=== PATIENT | female | born 1950 | race Caucasian/White ===

== ENCOUNTER 2016-06-14 12:19 | Observation (INO) | payer BC ==
[~2016-06-14] VITALS: Ht 165.1 cm; Wt 79.9 kg
[2016-06-14] VITALS (7 sets, daily range): BP systolic 123–147; BP diastolic 70–84; PULSE 78–86; TEMP 36.5–36.6; O2SAT 94–98; Ht 165.1 cm; Wt 79.9 kg
[~2016-06-14 12:19] MED LIST: CALCTAB30 PO; COEN1CAP17 PO; CYAN500T13 PO; GLUCTAB7 PO; LUTE6TAB PO; OMEG10007 PO; PHYT100T PO; SELE200C3 PO; TURM1CAP4 PO; VITA400C3 PO; VTMD1000 PO
[2016-06-14] MEDS ORDERED: ASPIRIN 324 MG CHEW PO STA (12:41)
--- NOTE | 2016-06-14 12:44 | EMERGENCY ROOM VISIT NOTE ---
History Report prepared by Isabel: Tobias Manzo Under the Supervision of: Dr. Alisha Cordon M.D. First contact with patient: 12:26 Chief Complaint: SYNCOPE Stated Complaint: DIZZY, SWEATING, PASSED OUT, NAUSEA History of Present Illness The patient is a 66 year old female who presents to the Emergency Room with complaints of a syncopal episode that occurred prior to arrival today. The patient says she woke up and got out of bed feeling nauseous and sweaty. She also had bad leg cramping. She thought she was dehydrated, so the patient went to the sink to get water. The patient got a drink, and then passed out. She woke up on the floor thinking she was in bed. The patient says her symptoms lasted for around an hour. When she woke up, the patient was very nauseous and white. She stayed white, according to her , until the patient started moving around. The patient denies any chest pain or recent constipation. She got testing done here a year ago when she was dehydrated. The patient called [facility] and there was no availability there, so the patient went to [facility]. [facility] told the patient to come to the ED. She has hyperlipidemia. Source of History: patient, spouse/significant other Onset: Prior to arrival today Position: other (global - syncope ) Timing: other (episode) Associated Symptoms: + diaphoresis, + nausea, No chest pain Note: Associated symptoms: Leg cramping prior to syncopal episode. Denies recent constipation. Review of Systems See HPI for pertinent positives & negatives. A total of 10 systems reviewed and were otherwise negative. Past Medical & Surgical Medical Problems: (1) Anxiety (2) Asthma, allergic (3) Dyslipidemia (4) H/O pilonidal cyst (5) Syncope Family History Thyroid problem Social History Smoking Status: Never Smoker Marital Status: Housing Status: lives with family Occupation Status: employed Current/Historical Medications Scheduled Aspirin (Aspirin EC Low Dose), 81 MG PO DAILY Ppxdnnz-Qazljbsao-Cqys (Calcium/Magnesium/Zinc), 1 TAB PO DAILY Cholecalciferol (Vitamin D3), 1,000 INTER.UNIT PO DAILY Coenzyme Q10 (Ubidecarenone) (Co Q 10), 100 MG PO DAILY Cyanocobalamin (Vitamin B12), 1,000 MCG PO DAILY Fish Oil ([place]-3), 1 CAP PO DAILY Reylqlhdncz-Dtbgeksamsa-Lfj C- (Glucosamine Chondroitin), 1 TAB PO DAILY Lutein-Zeaxanthin (Lutein W/Zeaxanthin), 1 TAB PO DAILY Vitamin E (Vitamin E 400 Iu), 400 INTER.UNIT PO DAILY Scheduled PRN Hydroxyzine Hcl (Atarax), 25 MG PO QID PRN for Anxiety Allergies Coded Allergies: Macrolides (Unverified Allergy, Mild, 06/14/16) Erythromycin (Unverified Allergy, Unknown, UNKNOWN, 06/14/16) Physical Exam Vital Signs Date Time Temp Pulse Resp B/P Pulse Ox O2 Delivery O2 Flow Rate FiO2 06/14/16 14:46 81 17 144/63 98 Room Air 06/14/16 13:40 72 18 126/68 96 Room Air 06/14/16 13:09 72 06/14/16 12:55 98 Room Air 06/14/16 12:51 77 138/71 81 130/69 82 118/73 06/14/16 12:27 36.5 73 18 145/81 98 Room Air Physical Exam CONSTITUTIONAL: Alert, awake, comfortable, no acute distress. HEENT: No icterus, moist mucous membranes NECK: No meningismus, trachea is midline. CARDIOVASCULAR: Regular rate, normal perfusion RESPIRATORY: Unlabored breathing. Clear to auscultation. GASTROINTESTINAL: Non-tender GENITOURINARY: No flank tenderness MUSCULOSKELETAL: Full range of motion NEUROLOGIC: No acute gross focal deficits. PSYCHIATRIC: Normal affect SKIN: Normal for ethnicity. Medical Decision & Procedures ER Provider Diagnostic Interpretation: X-ray results as stated below per interpretation by me and the radiologist. CHEST ONE VIEW PORTABLE HISTORY: syncope COMPARISON: Chest 12/14/2014. FINDINGS: The lungs are clear. Cardiac silhouette is normal in size. No pleural effusions. No pneumothorax. IMPRESSION: No acute process. Electronically signed by: Esteban Uribe M.D. 06/14/2016 1:12 PM Dictated Date/Time: 06/14/2016 1:11 PM Laboratory Results 06/14/16 13:10 Red Blood Count 4.50, Mean Corpuscular Volume 89.3, Mean Corpuscular Hemoglobin 30.9, Mean Corpuscular Hemoglobin Concent 34.6, Mean Platelet Volume 8.9, Neutrophils (%) (Auto) 85.0, Lymphocytes (%) (Auto) 11.2, Monocytes (%) (Auto) 3.4, Eosinophils (%) (Auto) 0.0, Basophils (%) (Auto) 0.3, Neutrophils # (Auto) 6.65, Lymphocytes # (Auto) 0.88, Monocytes # (Auto) 0.27, Eosinophils # (Auto) 0.00, Basophils # (Auto) 0.02 06/14/16 13:10 Test 06/14/16 12:33 06/14/16 13:10 06/14/16 14:32 Urine Color YELLOW Urine Appearance CLEAR (CLEAR) Urine pH 7.0 (4.5-7.5) Urine Specific [place] 1.019 (1.000-1.030) Urine Protein NEG (NEG) Urine Glucose (UA) NEG (NEG) Urine Ketones NEG (NEG) Urine Occult Blood NEG (NEG) Urine Nitrite NEG (NEG) Urine Bilirubin NEG (NEG) Urine Urobilinogen NEG (NEG) Urine Leukocyte Esterase NEG (NEG) White Blood Count 7.83 K/uL (4.8-10.8) Red Blood Count 4.50 M/uL (4.2-5.4) Hemoglobin 13.9 g/dL (12.0-16.0) Hematocrit 40.2 % (37-47) Mean Corpuscular Volume 89.3 fL (80-100) Mean Corpuscular Hemoglobin 30.9 pg (25-34) Mean Corpuscular Hemoglobin Concent 34.6 g/dl (32-36) Platelet Count 216 K/uL (130-400) Mean Platelet Volume 8.9 fL (7.4-10.4) Neutrophils (%) (Auto) 85.0 % Lymphocytes (%) (Auto) 11.2 % Monocytes (%) (Auto) 3.4 % Eosinophils (%) (Auto) 0.0 % Basophils (%) (Auto) 0.3 % Neutrophils # (Auto) 6.65 K/uL (1.4-6.5) Lymphocytes # (Auto) 0.88 K/uL (1.2-3.4) Monocytes # (Auto) 0.27 K/uL (0.11-0.59) Eosinophils # (Auto) 0.00 K/uL (0-0.5) Basophils # (Auto) 0.02 K/uL (0-0.2) RDW Standard Deviation 40.3 fL (36.4-46.3) RDW Coefficient of Variation 12.5 % (11.5-14.5) Immature Granulocyte % (Auto) 0.1 % Immature Granulocyte # (Auto) 0.01 K/uL (0.00-0.02) Prothrombin Time 11.2 SECONDS (9.0-12.0) Prothromb Time International Ratio 1.0 (0.9-1.1) Activated Partial Thromboplast Time 26.6 SECONDS (21.0-31.0) Partial Thromboplastin Ratio 1.0 Anion Gap 8.0 mmol/L (3-11) Est Creatinine Clear Calc Drug Dose 75.4 ml/min Estimated GFR () 91.7 Estimated GFR (Non- 79.1 BUN/Creatinine Ratio 12.9 (10-20) Calcium Level 8.7 mg/dl (8.5-10.1) Total Bilirubin 0.4 mg/dl (0.2-1) Aspartate Amino Transf (AST/SGOT) 19 U/L (15-37) Alanine Aminotransferase (ALT/SGPT) 26 U/L (12-78) Alkaline Phosphatase 54 U/L (45-117) Troponin I < 0.015 ng/ml (0-0.045) Total Protein 7.0 gm/dl (6.4-8.2) Albumin 3.7 gm/dl (3.4-5.0) Globulin 3.3 gm/dl (2.5-4.0) Albumin/Globulin Ratio 1.1 (0.9-2) Labs reviewed by ED physician. Medications Administered Medications (Trade) Dose Ordered Sig/Fernando Route Start Time Stop Time Status Last Admin Dose Admin Aspirin 324 mg 324 mg NOW STAT PO 06/14/16 12:41 06/14/16 12:43 DC 06/14/16 12:54 324 MG Sodium Chloride (Nss 1000ml) 1,000 ml @ 80 mls/hr [id number] IV 06/14/16 14:12 06/15/16 02:41 06/14/16 14:12 80 MLS/HR ECG Indication: syncope Rate (beats per minute): 73 Rhythm: normal sinus Findings: other (normal axis, normal ST findings, normal intervals) ED Course 1233: Past medical records reviewed. The patient was evaluated in room B12B. A complete history and physical examination was performed. The patient verbally expressed understanding and agreement of the treatment plan. The patient will be evaluated for further treatment. 1241: Ordered Aspirin Chew 324 mg PO. 1327: I discussed the patient with Mandi Sanchez - she will evaluate the patient for further treatment. Medical Decision Differential diagnoses include: cardiac dysrhythmia, cardiac disease, anemia. 66-year-old presented to the emergency room with her for evaluation of syncope. She reports she's been in her otherwise normal state of health but inexplicably became mildly nauseous and diaphoretic and reportedly looked pale per her . During the time she had a nontraumatic episode of syncope with rapid return to consciousness but continued to feel ill for nearly 60 minutes. His been no recent cardiac evaluations expressly feels well without complaints and has normal vital signs. EKG does not demonstrate any concerning ST nor interval changes at this time. She remained without cardiac dysrhythmia on monitor during emergency Department course. Admission arranged hospitalist. Consults Time Called: 1323 Consulting Physician: Mandi Sanchez Returned Call: 1327 I discussed the patient with Mandi Sanchez - she will evaluate the patient for further treatment. Impression Primary Impression: Syncope Scribe Attestation The scribe's documentation has been prepared under my direction and personally reviewed by me in its entirety. I confirm that the note above accurately reflects all work, treatment, procedures, and medical decision making performed by me. Departure Information Dispostion Being Evaluated By Hospitalist Referrals Bryn Villegas M.D. (MEDICAL) (PCP) Patient Instructions A Signature Page, My [facility]
--- NOTE | 2016-06-14 13:13 | DIAGNOSTIC IMAGING REPORT ---
CHEST ONE VIEW PORTABLE HISTORY: syncope COMPARISON: Chest 12/14/2014. FINDINGS: The lungs are clear. Cardiac silhouette is normal in size. No pleural effusions. No pneumothorax. IMPRESSION: No acute process. Electronically signed by: Esteban Uribe M.D. 06/14/2016 1:12 PM Dictated Date/Time: 06/14/2016 1:11 PM
[2016-06-14 13:29] LABS: BASO % 0.3 %; BASO ABS # 0.02 K/uL (0-0.2); COMPLETE YES; HEMATOCRIT 40.2 % (37-47); IG% 0.1 %; LYMPH % 11.2 %; LYMPH ABS # 0.88 K/uL (1.2-3.4); MEAN CELL VOLUME 89.3 fL (80-100); MEAN CORPUSCULAR HEMOGLOBIN 30.9 pg (25-34); MEAN CORPUSCULAR HGB CONC 34.6 g/dl (32-36); MEAN PLATELET VOLUME 8.9 fL (7.4-10.4); MONO % 3.4 %; PLATELET COUNT 216 K/uL (130-400); WHITE BLOOD COUNT 7.83 K/uL (4.8-10.8)
[2016-06-14 13:39] LABS: PROTHROMBIN TIME (PATIENT) 11.2 SECONDS (9.0-12.0)
[2016-06-14 13:47] LABS: URINE APPEARANCE CLEAR (CLEAR); URINE BILIRUBIN NEG (NEG); URINE COLOR YELLOW; URINE NITRITE NEG (NEG); URINE SPECIFIC GRAVITY 1.019 (1.000-1.030); UROBILINOGEN NEG (NEG); ZZUR CULT IF INDIC CLEAN CATCH NO
[2016-06-14 13:57] LABS: ALT/SGPT 26 U/L (12-78); BLOOD UREA NITROGEN 10 mg/dl (7-18); BUN/CREATININE RATIO 12.9 (10-20); CALCIUM 8.7 mg/dl (8.5-10.1); CARBON DIOXIDE 27 mmol/L (21-32); CHLORIDE 106 mmol/L (98-107); CREATININE 0.79 mg/dl (0.60-1.20); GLUCOSE 128 mg/dl (70-99); POTASSIUM 4.3 mmol/L (3.5-5.1); SODIUM 141 mmol/L (136-145)
[2016-06-14 13:57] LABS: MANUAL MICROSCOPIC REQUIRED? NO; REVIEW REQ? NO
[2016-06-14 14:02] LABS: ALB/GLOB RATIO 1.1 (0.9-2); ALKALINE PHOSPHATASE 54 U/L (45-117); AST/SGOT 19 U/L (15-37)
[2016-06-14] MEDS ORDERED: SODIUM CHLORIDE 0.9% 1000ML 1,000 ML IV SCH (14:12)
[2016-06-14] MEDS ORDERED: ONDANSETRON INJ 2 MG/ML 2 ML VIAL IV PRN (14:15)
[2016-06-14] MEDS ORDERED: ACETAMINOPHEN 325 MG TAB PO PRN (14:15)
[2016-06-14] MEDS ORDERED: NITROGLYCERIN 0.4 MG SL PER TAB CHARGE SL PRN (14:15)
[2016-06-14] MEDS ORDERED: ASPEC81 PO (14:26)
[2016-06-14] MEDS ORDERED: HYDR-3124 PO (14:26)
[2016-06-14] MEDS ORDERED: CYAN100020 PO (14:26)
[2016-06-14] MEDS ORDERED: hydrOXYzine HCL 25 MG TAB PO PRN (14:30)
--- NOTE | 2016-06-14 14:43 | DIAGNOSTIC IMAGING REPORT ---
CT SCAN OF THE BRAIN WITHOUT IV CONTRAST CLINICAL HISTORY: Syncope. COMPARISON STUDY: CT of the brain dated 12/14/2014. TECHNIQUE: Unenhanced axial CT scan of the brain is performed from the vertex to the skull base. Automated dose control exposure was utilized. CT DOSE: 537.48 mGy.cm FINDINGS: Brain parenchyma: The brain parenchyma is normal in appearance. There is no hemorrhage, mass effect, or evidence of acute territorial ischemia by CT criteria. Gonzáles-white matter is preserved. No extra-axial fluid collection is seen. Ventricles, sulci, cisterns: Normal in configuration. Intracranial vasculature: There is atherosclerotic calcification of the cavernous carotid arteries. Calvarium: The skeletal structures are osteopenic. There is no depressed calvarial fracture. Sinuses and mastoids: The visualized paranasal sinuses are clear. The mastoid air cells are well pneumatized. Orbits: The bony orbits are grossly intact. IMPRESSION: No acute intracranial abnormality. Electronically signed by: Bill Grady M.D. 06/14/2016 2:41 PM Dictated Date/Time: 06/14/2016 2:39 PM
--- NOTE | 2016-06-14 14:53 | History and Physical ---
History & Physical Date & Time of Service: Jun 14, 2016 at 14:28 Chief Complaint: Dizzy, Sweating, Passed Out, Nausea Primary Care Physician: Bryn Villegas M.D. (MEDICAL) History of Present Illness Source: patient This is a 66 y/o female with PMHx of Dyslipidemia and other problems as outlined below who presents to the ED c/o syncopal episode that occurred prior to arrival. Pt reports that this morning she was awoken due to a [place] horse and jumped out of bed. Upon standing she became very lightheaded and diaphoretic. She drank a glass of water thinking she was dehydrated and next thing she knew she was waking up on the floor. Patient was home alone when she passed out and does not know how long she was unconscious for. She does not know if she hit her head. After getting herself up off the floor she returned to bed although the lightheadedness, diaphoresis and nausea persisted for about an hour. Pt has a history of syncope while at the dentist "years ago" but reports that it was due to nerves. Pt has been exposed to multiple family members with upper respiratory sxs recently. Pt denies fever/chills, visual changes, chest pain, palpitations, SOB, wheezing, abd pain, vomiting, melena, hematochezia, diarrhea, constipation, dysuria, hematuria, loss of bowel or bladder control, LE edema, calf pain, unilateral weakness, slurred speech, facial droop, difficulty ambulating, difficulty swallowing or confusion. In the ED, vitals are stable. Labs are unremarkable. CXR is negative. Troponin negative and EKG no evidence of ischemic changes. Pt is currently feeling back to her baseline. She was able to ambulate in the ED with no issues. She will be admitted for further evaluation and treatment. Past Medical/Surgical History Medical Problems: (1) Anxiety Status: Chronic (2) Asthma, allergic Status: Chronic (3) Dyslipidemia Status: Chronic (4) H/O pilonidal cyst Permanent Comment: surgically removed 1971 Status: Resolved Family History Thyroid problem Social History Smoking Status: Never Smoker Alcohol Use: 2 beers/night Drug Use: none Marital Status: Housing status: lives with significant other Occupational Status: employed Multi-Drug Resistant Organisms History of MDRO: No Allergies Coded Allergies: Macrolides (Unverified Allergy, Mild, 06/14/16) Erythromycin (Unverified Allergy, Unknown, UNKNOWN, 06/14/16) Home Medications Scheduled Aspirin (Aspirin EC Low Dose), 81 MG PO DAILY Oguhgbl-Xgfdlpuee-Sbvc (Calcium/Magnesium/Zinc), 1 TAB PO DAILY Cholecalciferol (Vitamin D3), 1,000 INTER.UNIT PO DAILY Coenzyme Q10 (Ubidecarenone) (Co Q 10), 100 MG PO DAILY Cyanocobalamin (Vitamin B12), 1,000 MCG PO DAILY Fish Oil ([place]-3), 1 CAP PO DAILY Hxhwytqnzwz-Ysrkhridtgi-Nrh C- (Glucosamine Chondroitin), 1 TAB PO DAILY Lutein-Zeaxanthin (Lutein W/Zeaxanthin), 1 TAB PO DAILY Vitamin E (Vitamin E 400 Iu), 400 INTER.UNIT PO DAILY Scheduled PRN Hydroxyzine Hcl (Atarax), 25 MG PO QID PRN for Anxiety Review of Systems Constitutional: + sweats, No chills, No fatigue, No fever, No weakness Eyes: No diplopia, No worsening of vision ENT: No nasal symptoms, No trouble swallowing Respiratory: No cough, No shortness of breath, No sputum, No wheezing Cardiovascular: No chest pain, No claudication, No edema, No palpitations Abdomen: + nausea, No GI bleeding, No constipation, No diarrhea, No pain, No vomiting Musculoskeletal: No calf pain, No swelling Genitourinary - Female: No dysuria, No hematuria Neurologic: + problem reported (syncope, lightheaded ), No weakness Psychiatric: No depression symptoms Endocrine: No fatigue Hematologic / Lymphatic: No abnormal bleeding/bruising Integumentary: No new/changing skin lesions Physical Exam Vital Signs Date Time Temp Pulse Resp B/P Pulse Ox O2 Delivery O2 Flow Rate FiO2 06/14/16 13:40 72 18 126/68 96 Room Air 06/14/16 13:09 72 06/14/16 12:55 98 Room Air 06/14/16 12:51 77 138/71 81 130/69 82 118/73 06/14/16 12:27 36.5 73 18 145/81 98 Room Air General Appearance: WD/WN, no apparent distress, + pertinent finding (Pt is sitting up in bed with at bedside ) Head: normocephalic, atraumatic Eyes: normal inspection ENT: hearing grossly normal Neck: supple Respiratory/Chest: chest non-tender, lungs clear, normal breath sounds, no respiratory distress Cardiovascular: regular rate, rhythm, no edema, no murmur Abdomen/GI: normal bowel sounds, non tender, soft Back: normal inspection Extremities/Musculoskelatal: normal inspection, no calf tenderness, no pedal edema Neurologic/Psych: alert, normal mood/affect, oriented x 3 Skin: normal color, warm/dry Diagnostics Laboratory Results Results Past 24 Hours Test 06/14/16 12:33 06/14/16 13:10 Range/Units Urine Color YELLOW Urine Appearance CLEAR CLEAR Urine pH 7.0 4.5-7.5 Urine Specific [place] 1.019 1.000-1.030 Urine Protein NEG NEG Urine Glucose (UA) NEG NEG Urine Ketones NEG NEG Urine Occult Blood NEG NEG Urine Nitrite NEG NEG Urine Bilirubin NEG NEG Urine Urobilinogen NEG NEG Urine Leukocyte Esterase NEG NEG White Blood Count 7.83 4.8-10.8 K/uL Red Blood Count 4.50 4.2-5.4 M/uL Hemoglobin 13.9 12.0-16.0 g/dL Hematocrit 40.2 37-47 % Mean Corpuscular Volume 89.3 80-100 fL Mean Corpuscular Hemoglobin 30.9 25-34 pg Mean Corpuscular Hemoglobin Concent 34.6 32-36 g/dl Platelet Count 216 130-400 K/uL Mean Platelet Volume 8.9 7.4-10.4 fL Neutrophils (%) (Auto) 85.0 % Lymphocytes (%) (Auto) 11.2 % Monocytes (%) (Auto) 3.4 % Eosinophils (%) (Auto) 0.0 % Basophils (%) (Auto) 0.3 % Neutrophils # (Auto) 6.65 1.4-6.5 K/uL Lymphocytes # (Auto) 0.88 1.2-3.4 K/uL Monocytes # (Auto) 0.27 0.11-0.59 K/uL Eosinophils # (Auto) 0.00 0-0.5 K/uL Basophils # (Auto) 0.02 0-0.2 K/uL RDW Standard Deviation 40.3 36.4-46.3 fL RDW Coefficient of Variation 12.5 11.5-14.5 % Immature Granulocyte % (Auto) 0.1 % Immature Granulocyte # (Auto) 0.01 0.00-0.02 K/uL Prothrombin Time 11.2 9.0-12.0 SECONDS Prothromb Time International Ratio 1.0 0.9-1.1 Activated Partial Thromboplast Time 26.6 21.0-31.0 SECONDS Partial Thromboplastin Ratio 1.0 Sodium Level 141 136-145 mmol/L Potassium Level 4.3 3.5-5.1 mmol/L Chloride Level 106 98-107 mmol/L Carbon Dioxide Level 27 21-32 mmol/L Anion Gap 8.0 3-11 mmol/L Blood Urea Nitrogen 10 7-18 mg/dl Creatinine 0.79 0.60-1.20 mg/dl Est Creatinine Clear Calc Drug Dose 75.4 ml/min Estimated GFR () 91.7 Estimated GFR (Non- 79.1 BUN/Creatinine Ratio 12.9 10-20 Random Glucose 128 70-99 mg/dl Calcium Level 8.7 8.5-10.1 mg/dl Total Bilirubin 0.4 0.2-1 mg/dl Aspartate Amino Transf (AST/SGOT) 19 15-37 U/L Alanine Aminotransferase (ALT/SGPT) 26 12-78 U/L Alkaline Phosphatase 54 45-117 U/L Troponin I < 0.015 0-0.045 ng/ml Total Protein 7.0 6.4-8.2 gm/dl Albumin 3.7 3.4-5.0 gm/dl Globulin 3.3 2.5-4.0 gm/dl Albumin/Globulin Ratio 1.1 0.9-2 Diagnostic Radiology CXR IMPRESSION: No acute process. EKG EKG: NSR at 73 bpm with no acute ischemic changes; no significant change when compared to EKG from 12/16/14 Impression Assessment and Plan SYNCOPE UNCLEAR ETIOLOGY pt presents with syncopal episode prior to arrival assoc with lightheadedness, diaphoresis and nausea -admit observation status to telemetry -vitals stable on arrival; 20 point drop in SBP from supine to standing -electrolytes unremarkable; glucose WNL -Initial troponin negative; monitor with serial Gregory -EKG NSR with no ischemic change -obtain CT head to r/o abnormal intracranial process -check carotid US to r/o stenosis -obtain echo -start IVF -monitor on telemetry for any arrhythmias -pt appears stable ANXIETY -stable -hydroxyzine PRN (pt rarely uses) DYSLIPIDEMIA -cont statin DVT PROPHYLAXIS -subq Lovenox CODE STATUS -FULL CODE status per discussion with patient upon admission DISPO -Pt seen in collaboration with Dr. Zapien. Please see his addendum for further details. Thanks! Agree with above H and P. Briefly 66F presents with an episode of syncope. Patient got up from sleep around 8am and she suddenly got up from the bed and felt dizzy and not felt well. Thought she might have dehydrated and wanted to drink water but she fell on the floor but she thought she was lying on the bed when she got up. Says she was there for few minutes. No biting of tounge or incontinence or shaking during the episode. No chest pain or sob. Was not confused when she got up. Did not feel good for about an hour and then became normal. Currently resting comfortably and hemodynamically stable. 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 vaso vagal? ct head and carotid Doppler negative will f/u echo and monitor in tele anxiety home meds prn VTE Prophylaxis VTE Risk Assessment Done? Y/N: Yes Risk Level: Moderate
--- NOTE | 2016-06-14 15:52 | DIAGNOSTIC IMAGING REPORT ---
ULTRASOUND OF THE CAROTID ARTERIES CLINICAL HISTORY: Syncope. COMPARISON STUDY: No priors. TECHNIQUE: Real-time, grayscale, and color Doppler sonography of the carotid arteries is performed. Images are reviewed in the transverse and longitudinal planes. FINDINGS: Blood pressure in the right arm measures 148/74 and blood pressure in the left arm measures 145/64. The carotid arteries are patent bilaterally and demonstrate antegrade flow. There is no significant atherosclerotic plaque identified. Normal doppler arterial waveforms are seen throughout. Velocity measurements are listed below. Common carotid peak systolic velocity (cm/sec): RIGHT: 129 LEFT: 129 ICA proximal peak systolic velocity (cm/sec): RIGHT: 86 LEFT: 57 ICA mid peak systolic velocity (cm/sec): RIGHT: 100 LEFT: 87 ICA distal peak systolic velocity (cm/sec): RIGHT: 95 LEFT: 73 ICA/CC peak systolic ratio: RIGHT: 0.8 LEFT: 0.7 Antegrade flow was shown in the vertebral arteries. The external carotid arteries are patent. IMPRESSION: 1. There is no sonographic evidence of hemodynamically significant stenosis in the right or left carotid arterial system. 2. Antegrade flow is shown in the vertebral arteries. Electronically signed by: Bill Grady M.D. 06/14/2016 3:50 PM Dictated Date/Time: 06/14/2016 3:47 PM
[2016-06-14 16:16] LABS: INFLUENZA A PCR Neg for Influ A (NEG); INFLUENZA B PCR Neg for Influ B (NEG)
[2016-06-14] MEDS ORDERED: IV FLUIDS COMPLETED PRN (16:45)
[2016-06-14] MEDS ORDERED: ENOXAPARIN 40 MG/0.4 ML SYR SC SCH (21:00)
[2016-06-15] VITALS (9 sets, daily range): BP systolic 126–142; BP diastolic 71–90; PULSE 78–90; TEMP 36.5–36.7; O2SAT 95–98
[2016-06-15 07:27] LABS: HEMATOCRIT 40.3 % (37-47); MEAN CORPUSCULAR HEMOGLOBIN 30.4 pg (25-34); MEAN CORPUSCULAR HGB CONC 33.7 g/dl (32-36); MEAN PLATELET VOLUME 9.2 fL (7.4-10.4); PLATELET COUNT 227 K/uL (130-400); RED BLOOD COUNT 4.48 M/uL (4.2-5.4); WHITE BLOOD COUNT 6.63 K/uL (4.8-10.8)
[2016-06-15 07:59] LABS: BUN/CREATININE RATIO 14.5 (10-20); CALCIUM 8.3 mg/dl (8.5-10.1); CREATININE 0.68 mg/dl (0.60-1.20); POTASSIUM 3.7 mmol/L (3.5-5.1)
[2016-06-15] MEDS ORDERED: TOCOPHERYL, DL-ALPHA 400 INTER.UNIT CAP PO SCH (09:00)
[2016-06-15] MEDS ORDERED: NON-FORMULARY MEDICATION (Coenzyme Q10 (Ubidecarenone) (Co Q 10) 100 MG) PO SCH (09:00)
[2016-06-15] MEDS ORDERED: OMEGA-3 (PURIFIED FISH OIL) 1 GM CAP PO SCH (09:00)
[2016-06-15] MEDS ORDERED: NON-FORMULARY MEDICATION (Glucosamine-Chondroitin-Vit C- (Glucosamine Chondroitin) 1 TAB) PO SCH (09:00)
[2016-06-15] MEDS ORDERED: ASPIRIN 81 MG ECTAB PO SCH (09:00)
[2016-06-15] MEDS ORDERED: LUTEIN ZEAXANTHIN PO SCH (09:00)
[2016-06-15] MEDS ORDERED: CYANOCOBALAMIN 500 MCG TAB (VIT B-12) PO SCH (09:00)
[2016-06-15] MEDS ORDERED: CHOLECALCIFEROL 1000 INTER.UNIT TAB PO SCH (09:00)
--- NOTE | 2016-06-15 16:12 | ECHOCARDIOGRAM REPORT ---
*NOTICE TO RECEIVING [facility] This information is strictly Confidential and protected under [place] law. [place] law prohibits you from making any further disclosure of this information unless further disclosure is expressly permitted by the written consent of the person to whom it pertains or is authorized by law. A general authorization for the release of medical or other information is not sufficient for this purpose. Hospital accepts no responsibility if the information is made available to any other person, INCLUDING THE PATIENT. Interpretation Summary * Name: GEMA HAMMER Study Date: 06/15/2016 08:30 AM BP: 142/74 mmHg * Patient Location: C.2T\S\S240\S\1 HR: 78 * : 1950 (M/d/yyyy) Gender: Female Height: 65 in * Age: 66 yrs Ethnicity: CA Weight: 177 lb * Ordering Physician: Mandi Villatoro * Performed By: Ana Walsh * * Reason For Study: SYNCOPE * BSA: 1.9 m2 * -- Conclusions -- * The left ventricular wall motion is normal. * Ejection Fraction = 55-60%. * Grade I diastolic dysfunction, (abnormal relaxation pattern). * There is a trivial right lateral loculated pericardial effusion. * There are no echocardiographic indications of cardiac tamponade. Procedure Details * A complete two-dimensional transthoracic echocardiogram was performed (2D, M-mode, Doppler and color flow Doppler). Left Ventricle * The left ventricle is normal in size. * There is normal left ventricular wall thickness. * Left ventricular systolic function is normal. * Ejection Fraction = 55-60%. * The left ventricular wall motion is normal. Right Ventricle * The right ventricle is normal size. * The right ventricular systolic function is normal as assessed by tricuspid annular plane systolic excursion (TAPSE) (normal >1.5 cm). Atria * The left atrial size is normal. * Right atrial size is normal. * There is no evidence of atrial septal defect, but resolution does not allow assessment for a patent foramen ovale. Mitral Valve * The mitral valve is normal. * There is no mitral valve stenosis. * Significant mitral regurgitation is absent. Tricuspid Valve * The tricuspid valve is normal. * There is no tricuspid stenosis. * Significant tricuspid regurgitation is absent. Aortic Valve * The aortic valve is trileaflet. * Aortic stenosis is absent. * There is no significant aortic regurgitation. Pulmonic Valve * The pulmonary valve is not well seen, but the Doppler examination is normal without significant regurgitation or stenosis. Great Vessels * The aortic root and proximal ascending aorta are normal sized. Pericardium/Pleural * There is a trivial right lateral loculated pericardial effusion. * There are no echocardiographic indications of cardiac tamponade. Great Vessels * Normal inferior vena cava diameter and respiratory variation suggests normal central venous pressure. * There is no evidence of pulmonary hypertension. The PA systolic pressure is less than 36 mmHg. * Normal inferior vena cava size and collapsability with sniff indicates a normal right atrial pressure of 3 mmHg Left Ventricular Diastolic Function * Grade I diastolic dysfunction, (abnormal relaxation pattern). MMode 2D Measurements and Calculations IVSd 0.80 cm IVSs 10 cm LVIDd 4.6 cm LVIDs 3.2 cm LVPWd 0.47 cm LVPWs 1.4 cm IVS/LVPW 1.7 FS 31.6 % EDV(Teich) 99.2 ml ESV(Teich) 40.1 ml EF(Teich) 59.5 % EDV(cubed) 99.7 ml ESV(cubed) 32.0 ml EF(cubed) 67.9 % % IVS thick 24.3 % % LVPW thick 198.0 % LV mass(C)d 89.2 grams LV mass(C)dI 47.5 grams/m\S\2 LV mass(C)s 117.7 grams LV mass(C)sI 62.7 grams/m\S\2 SV(Teich) 59.0 ml SI(Teich) 31.4 ml/m\S\2 SV(cubed) 67.7 ml SI(cubed) 36.1 ml/m\S\2 ACS 1.5 cm LA dimension 3.6 cm asc Aorta Diam 3.1 cm LVOT diam 1.4 cm LVOT area 1.6 cm\S\2 LVAd ap4 32.0 cm\S\2 LVLd ap4 9.1 cm EDV(MOD-sp4) 93.6 ml EDV(sp4-el) 95.4 ml LVAs ap4 16.1 cm\S\2 LVLs ap4 6.5 cm ESV(MOD-sp4) 32.0 ml ESV(sp4-el) 33.7 ml EF(MOD-sp4) 65.8 % EF(sp4-el) 64.6 % LVAd ap2 31.8 cm\S\2 LVLd ap2 8.2 cm EDV(MOD-sp2) 105.1 ml EDV(sp2-el) 104.6 ml LVAs ap2 16.5 cm\S\2 LVLs ap2 6.3 cm ESV(MOD-sp2) 36.5 ml ESV(sp2-el) 36.9 ml EF(MOD-sp2) 65.3 % EF(sp2-el) 64.7 % LVLd %diff -11.18 % EDV(MOD-bp) 104.1 ml LVLs %diff -3.73 % ESV(MOD-bp) 34.8 ml EF(MOD-bp) 66.6 % SV(MOD-sp4) 61.6 ml SI(MOD-sp4) 32.8 ml/m\S\2 SV(MOD-sp2) 68.6 ml SI(MOD-sp2) 36.5 ml/m\S\2 SV(MOD-bp) 69.3 ml SI(MOD-bp) 36.9 ml/m\S\2 SV(sp4-el) 61.6 ml SI(sp4-el) 32.8 ml/m\S\2 SV(sp2-el) 67.7 ml SI(sp2-el) 36.1 ml/m\S\2 Doppler Measurements and Calculations MV E max sanjay 88.7 cm/sec MV A max sanjay 103.4 cm/sec MV E/A 0.86 MV dec time 0.21 sec Ao V2 max 131.0 cm/sec Ao max PG 6.9 mmHg Ao max PG (full) 1.4 mmHg AMADOR(V,A) 1.4 cm\S\2 AMADOR(V,D) 1.4 cm\S\2 LV V1 max PG 5.5 mmHg LV V1 mean PG 2.3 mmHg LV V1 max 117.4 cm/sec LV V1 mean 65.4 cm/sec LV V1 VTI 28.8 cm SV(LVOT) 45.8 ml SI(LVOT) 24.4 ml/m\S\2 PA V2 max 72.8 cm/sec PA max PG 2.1 mmHg TR max sanjay 231.1 cm/sec
--- NOTE | 2016-06-15 16:36 | Discharge Instructions ---
Discharge Instructions Admission Reason for Admission: Syncope Discharge Discharge Diagnosis / Problem: syncope Discharge Goals Goal(s): Decrease discomfort, Improve function Activity Recommendations Activity Limitations: resume your previous activity . Instructions / Follow-Up Instructions / Follow-Up FOLLOWUP WITH FAMILY DOCTOR ON Jun AT 10:10AM FOLLOWUP WITH FAMILY DOCTOR FOR TRACE RIGHT LATERAL LOCULATED PERICARDIAL EFFUSION. Current Hospital Diet Patient's current hospital diet: Regular Diet Discharge Diet Recommended Diet: Regular Diet Pending Studies Studies pending at discharge: no Medical Emergencies . Who to Call and When: Medical Emergencies: If at any time you feel your situation is an emergency, please call 911 immediately. . Non-Emergent Contact Non-Emergency issues call your: Primary Care Provider . . "Provider Documentation" section prepared by Shalom Zapien. VTE Core Measure Inpt VTE Proph given/why not?: Enoxaparin (Lovenox)SQ (REFUSED)
--- NOTE | 2016-06-15 19:33 | Progress Note ---
Internal Med Progress Note Date of Service: Jun 15, 2016. Provider Documentation: SUBJECTIVE: resting comfortably no chest pain or sob no nausea no dizziness want to go home OBJECTIVE: Vital Signs-as noted below Exam: General-alert and oriented x 3 ENT-normal hearing Neck-no neck masses Lungs-cta b/l no wheezing or rhonchi Heart-s1 and s2 heard regular rate and rhythm, no murmurs Abdomen-soft bowel sounds present non tender no distension Extremities-no edema no erythema Neuro-alert and awake moves extremities Lab data as noted below. ASSESSMENT & PLAN: SYNCOPE UNCLEAR ETIOLOGY pt presents with syncopal episode prior to arrival assoc with lightheadedness, diaphoresis and nausea Monitored in tele was slight orthostatics in ER butv today no orthostatic hypotension ct head unremarkable carotid Doppler unremarkable echo unremarkable except for trivial right lateral loculated pericardial effusion- f/u with pcp discharged home to follow up with pcp ANXIETY stable on hydroxyzine PRN (pt rarely uses) DYSLIPIDEMIA on statin discharged home Vital Signs: Date Time Temp Pulse Resp B/P Pulse Ox O2 Delivery O2 Flow Rate FiO2 06/15/16 17:14 36.7 90 18 97 Room Air 06/15/16 16:00 96 Room Air 06/15/16 15:20 36.7 90 18 129/90 97 Room Air 06/15/16 12:00 95 Room Air 06/15/16 11:47 36.5 80 18 126/71 98 Room Air 06/15/16 08:00 97 Room Air 06/15/16 07:30 36.6 80 20 129/77 97 Room Air 06/15/16 04:00 Room Air 06/15/16 03:06 36.6 78 20 142/74 95 Room Air 06/15/16 00:01 97 Room Air 06/14/16 23:25 36.6 86 18 135/84 97 Room Air 06/14/16 20:15 78 123/72 97 Room Air 78 136/82 82 130/78 06/14/16 20:00 94 Room Air 06/14/16 19:40 36.6 86 18 147/84 94 Room Air Lab Results: Results Past 24 Hours Test 06/14/16 19:55 06/15/16 00:47 06/15/16 07:05 Range/Units Creatine Kinase MB 1.5 1.2 0.5-3.6 ng/ml Troponin I < 0.015 < 0.015 0-0.045 ng/ml Creatine Kinase MB Ratio 0-3.0 White Blood Count 6.63 4.8-10.8 K/uL Red Blood Count 4.48 4.2-5.4 M/uL Hemoglobin 13.6 12.0-16.0 g/dL Hematocrit 40.3 37-47 % Mean Corpuscular Volume 90.0 80-100 fL Mean Corpuscular Hemoglobin 30.4 25-34 pg Mean Corpuscular Hemoglobin Concent 33.7 32-36 g/dl RDW Standard Deviation 41.1 36.4-46.3 fL RDW Coefficient of Variation 12.7 11.5-14.5 % Platelet Count 227 130-400 K/uL Mean Platelet Volume 9.2 7.4-10.4 fL Sodium Level 141 136-145 mmol/L Potassium Level 3.7 3.5-5.1 mmol/L Chloride Level 110 98-107 mmol/L Carbon Dioxide Level 23 21-32 mmol/L Anion Gap 8.0 3-11 mmol/L Blood Urea Nitrogen 10 7-18 mg/dl Creatinine 0.68 0.60-1.20 mg/dl Est Creatinine Clear Calc Drug Dose 87.3 ml/min Estimated GFR () 107.1 Estimated GFR (Non- 92.4 BUN/Creatinine Ratio 14.5 10-20 Random Glucose 121 70-99 mg/dl Calcium Level 8.3 8.5-10.1 mg/dl
--- NOTE | 2016-06-15 19:52 | Discharge Summary ---
Discharge Summary Admission Date: Jun 14, 2016 at 14:46 Discharge Date: Jun 15, 2016 Discharge Disposition: Home Principal Diagnosis: SYNCOPE Secondary Diagnoses/Problems: 1) Anxiety Status: Chronic (2) Asthma, allergic Status: Chronic (3) Dyslipidemia Status: Chronic Procedures: HEAD CT:' No acute intracranial abnormality. CAROTID US: 1. There is no sonographic evidence of hemodynamically significant stenosis in the right or left carotid arterial system. 2. Antegrade flow is shown in the vertebral arteries. ECHO: The left ventricular wall motion is normal. * Ejection Fraction = 55-60%. * Grade I diastolic dysfunction, (abnormal relaxation pattern). * There is a trivial right lateral loculated pericardial effusion. * There are no echocardiographic indications of cardiac tamponade. Medication Reconciliation Continued Medications: Aspirin (Aspirin EC Low Dose) 81 Mg Ectab 81 MG PO DAILY Tmukczr-Codrrhrfa-Iooi (Calcium/Magnesium/Zinc) 1 Tab Tab 1 TAB PO DAILY Cholecalciferol (Vitamin D3) 1,000 Inter.unit Tab 1000 INTER.UNIT PO DAILY Coenzyme Q10 (Ubidecarenone) (Co Q 10) 100 Mg Cap 100 MG PO DAILY Cyanocobalamin (Vitamin B12) 1,000 Mcg Tab 1000 MCG PO DAILY Fish Oil ([place]-3) 1 Ea Cap 1 CAP PO DAILY, 0 Refills Hthnqcrhjfh-Qlionizbepd-Syj C- (Glucosamine Chondroitin) 1 Tab Tab 1 TAB PO DAILY Hydroxyzine Hcl (Atarax) 25 Mg Tab 25 MG PO QID PRN for Anxiety, TAB Lutein-Zeaxanthin (Lutein W/Zeaxanthin) 1 Tab Tab 1 TAB PO DAILY Vitamin E (Vitamin E 400 Iu) 400 Unit Cap 400 INTER.UNIT PO DAILY, CAP Admission Information HPI (per Admitting provider): This is a 66 y/o female with PMHx of Dyslipidemia and other problems as outlined below who presents to the ED c/o syncopal episode that occurred prior to arrival. Pt reports that this morning she was awoken due to a [place] horse and jumped out of bed. Upon standing she became very lightheaded and diaphoretic. She drank a glass of water thinking she was dehydrated and next thing she knew she was waking up on the floor. Patient was home alone when she passed out and does not know how long she was unconscious for. She does not know if she hit her head. After getting herself up off the floor she returned to bed although the lightheadedness, diaphoresis and nausea persisted for about an hour. Pt has a history of syncope while at the dentist "years ago" but reports that it was due to nerves. Pt has been exposed to multiple family members with upper respiratory sxs recently. Pt denies fever/chills, visual changes, chest pain, palpitations, SOB, wheezing, abd pain, vomiting, melena, hematochezia, diarrhea, constipation, dysuria, hematuria, loss of bowel or bladder control, LE edema, calf pain, unilateral weakness, slurred speech, facial droop, difficulty ambulating, difficulty swallowing or confusion. In the ED, vitals are stable. Labs are unremarkable. CXR is negative. Troponin negative and EKG no evidence of ischemic changes. Pt is currently feeling back to her baseline. She was able to ambulate in the ED with no issues. She will be admitted for further evaluation and treatment. Physical Exam (per Admitting): General Appearance: WD/WN, no apparent distress, + pertinent finding (Pt is sitting up in bed with at bedside ) Head: normocephalic, atraumatic Eyes: normal inspection ENT: hearing grossly normal Neck: supple Respiratory/Chest: chest non-tender, lungs clear, normal breath sounds, no respiratory distress Cardiovascular: regular rate, rhythm, no edema, no murmur Abdomen/GI: normal bowel sounds, non tender, soft Back: normal inspection Extremities/Musculoskelatal: normal inspection, no calf tenderness, no pedal edema Neurologic/Psych: alert, normal mood/affect, oriented x 3 Skin: normal color, warm/dry Physical Exam (per Admitting): General Appearance: WD/WN, no apparent distress, + pertinent finding (Pt is sitting up in bed with at bedside ) Head: normocephalic, atraumatic Eyes: normal inspection ENT: hearing grossly normal Neck: supple Respiratory/Chest: chest non-tender, lungs clear, normal breath sounds, no respiratory distress Cardiovascular: regular rate, rhythm, no edema, no murmur Abdomen/GI: normal bowel sounds, non tender, soft Back: normal inspection Extremities/Musculoskelatal: normal inspection, no calf tenderness, no pedal edema Neurologic/Psych: alert, normal mood/affect, oriented x 3 Skin: normal color, warm/dry Hospital Course SYNCOPE UNCLEAR ETIOLOGY pt presents with syncopal episode prior to arrival assoc with lightheadedness, diaphoresis and nausea Monitored in tele was slight orthostatics in ER butv today no orthostatic hypotension ct head unremarkable carotid Doppler unremarkable echo unremarkable except for trivial right lateral loculated pericardial effusion- f/u with pcp discharged home to follow up with pcp ANXIETY stable on hydroxyzine PRN (pt rarely uses) DYSLIPIDEMIA on statin discharged home Total time spent on discharge = 35MINUTES This includes examination of the patient, discharge planning, medication reconciliation, and communication with other providers. Discharge Instructions Please take this sheet to every appointment for the next month Discharge Instructions Admission Reason for Admission: Syncope Discharge Discharge Diagnosis / Problem: syncope Discharge Goals Goal(s): Decrease discomfort, Improve function Activity Recommendations Activity Limitations: resume your previous activity . Instructions / Follow-Up Instructions / Follow-Up FOLLOWUP WITH FAMILY DOCTOR ON Jun AT 10:10AM FOLLOWUP WITH FAMILY DOCTOR FOR TRACE RIGHT LATERAL LOCULATED PERICARDIAL EFFUSION. Current Hospital Diet Patient's current hospital diet: Regular Diet Discharge Diet Recommended Diet: Regular Diet Pending Studies Studies pending at discharge: no Medical Emergencies . Who to Call and When: Medical Emergencies: If at any time you feel your situation is an emergency, please call 911 immediately. . Non-Emergent Contact Non-Emergency issues call your: Primary Care Provider . . "Provider Documentation" section prepared by Shalom Zapien. VTE Core Measure Inpt VTE Proph given/why not?: Enoxaparin (Lovenox)SQ (REFUSED)
== END 2016-06-15 18:03 | disposition home or self-care (01) ==
LOC: ENRESERVTM → ENRESERVDT → C.EDB 12:21 → C.2T 14:46
PROVIDERS: ADMIT Internal Medicine; ATTEND Internal Medicine
DX: R55 Syncope and collapse (principal); J45.909 Unspecified asthma, uncomplicated; E78.5 Hyperlipidemia, unspecified; Z79.82 Long term (current) use of aspirin

== ENCOUNTER 2017-10-01 22:38 | Emergency (ER) | payer BC ==
[~2017-10-01] VITALS: Ht 165.1 cm; Wt 79.8 kg
[~2017-10-01 22:38] MED LIST changes: +ASPI-320 PO; +CYAN100020 PO; -CYAN500T13 PO; +HYDR-3124 PO; -PHYT100T PO; -SELE200C3 PO; -TURM1CAP4 PO
[2017-10-01 22:40] VITALS: TEMP 36.3; Ht 165.1 cm; Wt 79.8 kg
[2017-10-01 23:26] LABS: BASO % 0.4 %; BASO ABS # 0.02 K/uL (0-0.2); EOS % 0.7 %; EOS ABS # 0.04 K/uL (0-0.5); HEMATOCRIT 40.4 % (37-47); HEMOGLOBIN 13.7 g/dL (12.0-16.0); LYMPH % 39.8 %; LYMPH ABS # 2.24 K/uL (1.2-3.4); MEAN CELL VOLUME 89.6 fL (80-100); MEAN CORPUSCULAR HEMOGLOBIN 30.4 pg (25-34); MEAN CORPUSCULAR HGB CONC 33.9 g/dl (32-36); MEAN PLATELET VOLUME 8.8 fL (7.4-10.4); MONO ABS # 0.45 K/uL (0.11-0.59); NEUT % 51.1 %; NEUT ABS # 2.88 K/uL (1.4-6.5); PLATELET COUNT 226 K/uL (130-400); RED CELL DISTRIBUTION WIDTH CV 12.7 % (11.5-14.5); RED CELL DISTRIBUTION WIDTH SD 41.4 fL (36.4-46.3); WHITE BLOOD COUNT 5.63 K/uL (4.8-10.8)
--- NOTE | 2017-10-01 23:28 | EMERGENCY ROOM VISIT NOTE ---
ED Visit Note First contact with patient: 22:45 I have seen and examined this patient with Sherlyn Pacheco and generally agree with the treatment plan as discussed. Problem List Medical Problems: (1) Anxiety Status: Chronic (2) Asthma, allergic Status: Chronic (3) Dyslipidemia Status: Chronic (4) H/O pilonidal cyst Permanent Comment: surgically removed 1971 Status: Resolved Current/Historical Medications Scheduled Aspirin (Aspirin EC Low Dose), 81 MG PO DAILY Tlzzsqr-Zbmelxpiu-Tsic (Calcium/Magnesium/Zinc), 1 TAB PO DAILY Cholecalciferol (Vitamin D3), 1,000 INTER.UNIT PO DAILY Coenzyme Q10 (Ubidecarenone) (Co Q 10), 100 MG PO DAILY Cyanocobalamin (Vitamin B12), 1,000 MCG PO DAILY Fish Oil ([place]-3), 1 CAP PO DAILY Xrnkwcgoorg-Csrynptzpom-Fhn C- (Glucosamine Chondroitin), 1 TAB PO DAILY Lutein-Zeaxanthin (Lutein W/Zeaxanthin), 1 TAB PO DAILY Vitamin E (Vitamin E 400 Iu), 400 INTER.UNIT PO DAILY Scheduled PRN Hydroxyzine Hcl (Atarax), 25 MG PO QID PRN for Anxiety Allergies Coded Allergies: Macrolides (Unverified Allergy, Mild, 06/14/16) Erythromycin (Unverified Allergy, Unknown, UNKNOWN, 06/14/16) Vital Signs Date Time Temp Pulse Resp B/P (MAP) Pulse Ox O2 Delivery O2 Flow Rate FiO2 10/01/17 23:07 Room Air 10/01/17 23:07 Room Air 10/01/17 22:55 74 16 165/92 97 Room Air 10/01/17 22:40 36.3 75 20 201/97 98 Room Air Laboratory Results 10/01/17 23:12 Red Blood Count 4.51, Mean Corpuscular Volume 89.6, Mean Corpuscular Hemoglobin 30.4, Mean Corpuscular Hemoglobin Concent 33.9, Mean Platelet Volume 8.8, Neutrophils (%) (Auto) 51.1, Lymphocytes (%) (Auto) 39.8, Monocytes (%) (Auto) 8.0, Eosinophils (%) (Auto) 0.7, Basophils (%) (Auto) 0.4, Neutrophils # (Auto) 2.88, Lymphocytes # (Auto) 2.24, Monocytes # (Auto) 0.45, Eosinophils # (Auto) 0.04, Basophils # (Auto) 0.02 Test 10/01/17 23:12 White Blood Count 5.63 K/uL (4.8-10.8) Red Blood Count 4.51 M/uL (4.2-5.4) Hemoglobin 13.7 g/dL (12.0-16.0) Hematocrit 40.4 % (37-47) Mean Corpuscular Volume 89.6 fL (80-100) Mean Corpuscular Hemoglobin 30.4 pg (25-34) Mean Corpuscular Hemoglobin Concent 33.9 g/dl (32-36) Platelet Count 226 K/uL (130-400) Mean Platelet Volume 8.8 fL (7.4-10.4) Neutrophils (%) (Auto) 51.1 % Lymphocytes (%) (Auto) 39.8 % Monocytes (%) (Auto) 8.0 % Eosinophils (%) (Auto) 0.7 % Basophils (%) (Auto) 0.4 % Neutrophils # (Auto) 2.88 K/uL (1.4-6.5) Lymphocytes # (Auto) 2.24 K/uL (1.2-3.4) Monocytes # (Auto) 0.45 K/uL (0.11-0.59) Eosinophils # (Auto) 0.04 K/uL (0-0.5) Basophils # (Auto) 0.02 K/uL (0-0.2) RDW Standard Deviation 41.4 fL (36.4-46.3) RDW Coefficient of Variation 12.7 % (11.5-14.5) Immature Granulocyte % (Auto) 0.0 % Immature Granulocyte # (Auto) 0.00 K/uL (0.00-0.02) Departure Information Referrals Bryn Villegas M.D. (MEDICAL) (PCP) Patient Instructions My [facility]
[2017-10-01] MEDS ORDERED: ASPI325T39 PO (23:37)
[2017-10-01] MEDS ORDERED: GARL10007 PO (23:38)
[2017-10-01] MEDS ORDERED: [UNRECOGNIZED DRUG - OTHER] (23:39)
[2017-10-01 23:45] LABS: ALBUMIN 3.6 gm/dl (3.4-5.0); ALT/SGPT 27 U/L (12-78); AST/SGOT 17 U/L (15-37); BLOOD UREA NITROGEN 12 mg/dl (7-18); CARBON DIOXIDE 25 mmol/L (21-32); CREATININE 0.79 mg/dl (0.60-1.20); GLUCOSE 113 mg/dl (70-99); POTASSIUM 3.9 mmol/L (3.5-5.1); SODIUM 136 mmol/L (136-145)
[2017-10-01 23:50] LABS: ALKALINE PHOSPHATASE 56 U/L (45-117); TOTAL PROTEIN 7.1 gm/dl (6.4-8.2)
[2017-10-02 00:55] VITALS: BP 150/77; PULSE 73; O2SAT 97
--- NOTE | 2017-10-02 01:52 | EMERGENCY ROOM VISIT NOTE ---
History First contact with patient: 22:45 Chief Complaint: HYPERTENSION Stated Complaint: ELEVATED BP, 184/94 History of Present Illness The patient is a 67 year old female who presents to the Emergency Room with complaints of elevated blood pressure with headache and tinnitus for the past several hours. Patient states she took 3 whole aspirins and a quarter of her husbands OxyIR in order to help out with the blood pressure. Patient states she does not normally have high blood pressure. It was 180/100 at home. She states she is worried over this and this prompted her to come to the ER. She describes a headache as throbbing, ranging in severity 5 out of 10 throughout the occipital region. Nothing makes it better or worse. It does not radiate. Patient denies chest pain, dyspnea, numbness, tingling, localized weakness, abdominal pain, nausea, vomiting, leg pain or swelling, vision problems, balance problems. No history of CVA or TX in the past. No known history of carotid stenosis. Review of Systems An 10 system review of systems was completed with positives and pertinent negatives listed in the HPI. Past Medical/Surgical History Medical Problems: (1) Anxiety (2) Asthma, allergic (3) Dyslipidemia (4) H/O pilonidal cyst (5) Syncope Family History Thyroid problem Social History Smoking Status: Never Smoker Drug Use: none Marital Status: Housing Status: lives with family Occupation Status: employed Current/Historical Medications Scheduled Aspirin (Aspirin EC Low Dose), 81 MG PO DAILY Qikorwj-Kwkhguhmv-Wzcx (Calcium/Magnesium/Zinc), 1 TAB PO DAILY Cholecalciferol (Vitamin D3), 1,000 INTER.UNIT PO DAILY Coenzyme Q10 (Ubidecarenone) (Co Q 10), 100 MG PO DAILY Fish Oil (Biscoe-3), 1 CAP PO DAILY Garlic (Garlic), 1,000 MG PO DAILY Scheduled PRN Aspirin (Aspirin Ec), 650 MG PO DIRECTED PRN for Pain or Fever Physical Exam Vital Signs Date Time Temp Pulse Resp B/P (MAP) Pulse Ox O2 Delivery O2 Flow Rate FiO2 10/02/17 00:55 73 18 150/77 97 Room Air 10/02/17 00:00 71 20 151/81 98 Room Air 10/01/17 23:07 Room Air 10/01/17 23:07 Room Air 10/01/17 23:05 71 10/01/17 22:55 74 16 165/92 97 Room Air 10/01/17 22:40 36.3 75 20 201/97 98 Room Air Physical Exam VITALS: Vitals are noted on the nurse's note and reviewed by myself. Vital signs hypertensive. GENERAL: Pleasant anxious appearing female, in no acute distress, nondiaphoretic , well-developed well-nourished. SKIN: The skin was without rashes, erythema, edema, or bruising. There is no tenting of the skin. Capillary reflex less than 2 seconds. HEAD: Normocephalic atraumatic. EARS: External auditory canals clear, tympanic membranes pearly pino without erythema or effusion bilaterally. EYES: Pupils equal round and reactive to light and accommodation. Conjunctivae without injection, sclerae without icterus. Extraocular movements intact. NOSE: Patent, turbinates without inflammation or discharge. MOUTH: Mucous membranes moist. Pharynx without erythema or exudate. Uvula midline. Airway patent. Tongue does not deviate. NECK: Supple without nuchal rigidity. No lymphadenopathy. No thyromegaly. Cervical spine is nontender. No JVD. No bruits appreciated. HEART: Regular rate and rhythm without murmurs gallops or rubs. LUNGS: Clear to auscultation bilaterally without wheezes, rales or rhonchi. No retractions or accessory muscle use. ABDOMEN: Positive bowel sounds x 4. Normal tympanic percussion. Soft, nontender, without masses or organomegaly. Huber sign negative. No guarding or rebound tenderness. No CVA tenderness MUSCULOSKELETAL: No muscle atrophy, erythema, or edema noted. NEURO: Patient was alert and oriented to person place and time. Normal sensation to light and sharp touch. No focal neurological deficits. Medical Decision & Procedures Laboratory Results 10/01/17 23:12 Red Blood Count 4.51, Mean Corpuscular Volume 89.6, Mean Corpuscular Hemoglobin 30.4, Mean Corpuscular Hemoglobin Concent 33.9, Mean Platelet Volume 8.8, Neutrophils (%) (Auto) 51.1, Lymphocytes (%) (Auto) 39.8, Monocytes (%) (Auto) 8.0, Eosinophils (%) (Auto) 0.7, Basophils (%) (Auto) 0.4, Neutrophils # (Auto) 2.88, Lymphocytes # (Auto) 2.24, Monocytes # (Auto) 0.45, Eosinophils # (Auto) 0.04, Basophils # (Auto) 0.02 10/01/17 23:12 Test 10/01/17 23:12 10/01/17 23:18 White Blood Count 5.63 K/uL (4.8-10.8) Red Blood Count 4.51 M/uL (4.2-5.4) Hemoglobin 13.7 g/dL (12.0-16.0) Hematocrit 40.4 % (37-47) Mean Corpuscular Volume 89.6 fL (80-100) Mean Corpuscular Hemoglobin 30.4 pg (25-34) Mean Corpuscular Hemoglobin Concent 33.9 g/dl (32-36) Platelet Count 226 K/uL (130-400) Mean Platelet Volume 8.8 fL (7.4-10.4) Neutrophils (%) (Auto) 51.1 % Lymphocytes (%) (Auto) 39.8 % Monocytes (%) (Auto) 8.0 % Eosinophils (%) (Auto) 0.7 % Basophils (%) (Auto) 0.4 % Neutrophils # (Auto) 2.88 K/uL (1.4-6.5) Lymphocytes # (Auto) 2.24 K/uL (1.2-3.4) Monocytes # (Auto) 0.45 K/uL (0.11-0.59) Eosinophils # (Auto) 0.04 K/uL (0-0.5) Basophils # (Auto) 0.02 K/uL (0-0.2) RDW Standard Deviation 41.4 fL (36.4-46.3) RDW Coefficient of Variation 12.7 % (11.5-14.5) Immature Granulocyte % (Auto) 0.0 % Immature Granulocyte # (Auto) 0.00 K/uL (0.00-0.02) Anion Gap 8.0 mmol/L (3-11) Est Creatinine Clear Calc Drug Dose 74.1 ml/min Estimated GFR () 91.0 Estimated GFR (Non- 78.6 BUN/Creatinine Ratio 15.6 (10-20) Calcium Level 9.0 mg/dl (8.5-10.1) Total Bilirubin 0.4 mg/dl (0.2-1) Direct Bilirubin 0.1 mg/dl (0-0.2) Aspartate Amino Transf (AST/SGOT) 17 U/L (15-37) Alanine Aminotransferase (ALT/SGPT) 27 U/L (12-78) Alkaline Phosphatase 56 U/L (45-117) Troponin I < 0.015 ng/ml (0-0.045) Total Protein 7.1 gm/dl (6.4-8.2) Albumin 3.6 gm/dl (3.4-5.0) Bedside Troponin I < 0.030 ng/ml (0-0.045) ED Course Prior records/ancillary studies reviewed regarding the history above. Triage Nursing notes reviewed. Additional history obtained from the family. The patient's history was concerning for hypertension. Differential diagnosis: Etiologies such as benign hypertension, hypertensive emergency, cardiovascular pathology, pheochromocytoma, electrolyte abnormality, renal disease, endorgan damage, as well as others were entertained. Physical examination: As above. No signs of end organ damage. ER treatment provided: Patient was observed On reassessment the patient felt better. Diagnostic interpretation by me: The electrocardiogram was negative for pathologic change. Normal sinus, OR interval 0.21, no acute ST-T wave changes. Impression first-degree AV block with normal sinus rhythm interpreted by myself The labs revealed hyperglycemia without DKA Imaging studies: Head CT negative for intracranial bleed per stat radiology Carotid ultrasound for tinnitus shows no stenosis. Possible thyroid nodule This appears to be consistent with hypertension that is now greatly improved on its own with no medication or intervention. Patient was advised to follow-up for this along with her blood sugar and possible thyroid nodule. Patient was neurovascularly and neurologically intact. She is well-appearing. She is advised to follow-up family care doctor in a day or 2 here in the ER sooner for high blood pressure, headache, weakness, chest pain, worsening signs or symptoms or as needed. By the evaluation outlined above emergent etiologies such as hypertensive emergency, pheochromocytoma, endorgan damage, cardiac ischemia, aortic dissection, pulmonary embolism, pneumonia, pneumothorax, infections, gastrointestinal, as well as others were deemed relatively unlikely. The pt informed about the findings as listed above. All questions were answered and pleased with the treatment. Return instructions were outlined and the patient was discharged in stable condition. Case reviewed with my attending Referral: The patient was referred back to their primary care physician for follow-up in 2 to 3 days for a recheck of the current condition. The chart was completed utilizing [employer] Speech voice recognition software. Grammatical errors, random word insertions, pronoun errors, and incomplete sentences are an occassional consequence of this system due to software limitations, ambient noise, and hardware issues. Any formal questions or concerns about the content, text, or information contained within the body of this dictation should be directly addressed to the physician regional administrative assistant for clarification. Medical Decision As above Blood Pressure Screening Patient's blood pressure: Elevated blood pressure Blood pressure disposition: Referred to PCP Impression Primary Impression: High blood pressure Additional Impressions: Headache Tinnitus Departure Information Dispostion Home / Self-Care Condition GOOD Forms WORK / SCHOOL INSTRUCTIONS, HOME CARE DOCUMENTATION FORM, IMPORTANT VISIT INFORMATION Patient Instructions Tinnitus, High Blood Pressure, My Behavio Additional Instructions There is a nodule on your thyroid. Follow-up family care for this. Monitor your blood pressure twice a day. Your blood sugar and blood pressure was slightly high today. Follow-up with family care doctor for this. Rest and drink plenty of fluids as tolerated. Continue current medications. Avoid strenuous activities and anything that worsens your pain. Resume normal activities once your symptoms resolve. Return to the ER immediately for worsening or persistent high blood pressure, headache, weakness, vision problems, abdominal pain, vomiting, fevers, chest pains, difficulty breathing, worsening of your condition, or as needed. Follow up with your primary physician in 2-3 days for a recheck of your current condition. Problem Qualifiers Primary Impression: High blood pressure Hypertension type: unspecified Qualified Codes: I10 - Essential (primary) hypertension Additional Impressions: Headache Headache type: unspecified Headache chronicity pattern: acute headache Intractability: not intractable Qualified Codes: R51 - Headache
--- NOTE | 2017-10-02 08:52 | DIAGNOSTIC IMAGING REPORT ---
BILATERAL CAROTID DOPPLER STUDY HISTORY: Headache. Tinnitus. COMPARISON: None. TECHNIQUE: Real-time, grayscale, and color Doppler sonography of the carotid arteries was performed. Imaging reviewed in the transverse and longitudinal planes. All measurements were calculated based on NASCET criteria. FINDINGS: Antegrade flow is seen in the bilateral vertebral arteries. The brachial pressures are hemodynamically similar. There is a 2.1 cm solid left thyroid nodule. This is heterogeneous and may contain a few punctate calcifications. The peak systolic velocity within the right ICA is 73 cm/s. The right systolic ratio is 0.7. The peak systolic velocity within the left ICA is 76 cm/s. The left systolic ratio is 0.7. IMPRESSION: 1. No hemodynamically significant stenosis seen within the carotid arteries. 2. A 2.1 cm left thyroid nodule. Ultrasound-guided fine-needle aspiration is recommended. 3. These findings were called/faxed to the emergency Department due to the follow-up recommendation. Electronically signed by: Esteban Uribe M.D. 10/02/2017 7:18 AM Dictated Date/Time: 10/02/2017 7:16 AM
--- NOTE | 2017-10-02 08:52 | DIAGNOSTIC IMAGING REPORT ---
CT SCAN OF THE BRAIN WITHOUT IV CONTRAST CLINICAL HISTORY: Headache. Tinnitus. COMPARISON STUDY: CT of the brain dated 06/14/2016. TECHNIQUE: Unenhanced axial CT scan of the brain is performed from the vertex to the skull base. A dose lowering technique was utilized adhering to the principles of ALARA. CT DOSE: 638.56 mGycm FINDINGS: Brain parenchyma: The brain parenchyma is normal in appearance. There is no hemorrhage, mass effect, or evidence of acute territorial ischemia by CT criteria. Gonzáles-white matter is preserved. No extra-axial fluid collection is seen. Ventricles, sulci, cisterns: Normal in configuration. Intracranial vasculature: There is mild atherosclerotic calcification of the cavernous carotid arteries. Calvarium: Unremarkable. Sinuses and mastoids: The visualized paranasal sinuses are clear. The mastoid air cells are well pneumatized. Orbits: The bony orbits are grossly intact. IMPRESSION: There is no hemorrhage, mass effect, or evidence of acute territorial ischemia by CT criteria. Electronically signed by: Bill Grady M.D. 10/02/2017 7:03 AM Dictated Date/Time: 10/02/2017 7:02 AM
== END 2017-10-02 00:56 | disposition home or self-care (01) ==
LOC: C.EDB 22:40
DX: R03.0 Elevated blood-pressure reading, without diagnosis of hypertension (principal); R73.9 Hyperglycemia, unspecified; R93.8 Abnormal findings on diagnostic imaging of other specified body structures; H93.19 Tinnitus, unspecified ear; I44.0 Atrioventricular block, first degree; Z79.82 Long term (current) use of aspirin

== ENCOUNTER → 2017-10-15 | Outpatient (CLI) | payer BC ==
[~2017-10-15] MED LIST changes: +ASPI325T39 PO; -CYAN100020 PO; +GARL10007 PO; -GLUCTAB7 PO; -HYDR-3124 PO; -LUTE6TAB PO; -VITA400C3 PO
--- NOTE | 2017-10-15 11:47 | DIAGNOSTIC IMAGING REPORT ---
GUIDANCE NEEDLE PLACEMENT CLINICAL HISTORY: LT THYROID NODULE TECHNIQUE: Ultrasound-guided fine-needle aspiration COMPARISON STUDY: Carotid Doppler 10/02/2017 FINDINGS: Following description of procedure and informed consent, a single pass with a 25-gauge needle was made to the 2 cm dominant nodule of the left thyroid. Initial pathology interpretation was that of sufficient cellularity. There are no complications. The patient was discharged without incident. IMPRESSION: Successful fine-needle aspiration of a 2 cm left thyroid nodule. No complications. Pathology is pending. The above report was generated using voice recognition software. It may contain grammatical, syntax or spelling errors. Electronically signed by: Pietro Golden M.D. 10/15/2017 11:46 AM Dictated Date/Time: 10/15/2017 11:45 AM
== END | disposition home or self-care (01) ==
LOC: C.ULTR 10:44
PROVIDERS: ATTEND Family Medicine
DX: E04.1 Nontoxic single thyroid nodule (principal)